=== PATIENT | male | born 1950 | race Caucasian/White ===

== ENCOUNTER → 2017-04-03 | Outpatient (CLI) | payer OTHER ==
[~2017-04-03] MED LIST: ETODOLAC 400 M400 M1 PO; SIMVASTATIN40 MG PO; SYNTHROID100 MCG PO
== END ==
LOC: MRI 13:24
DX: S83.241A Other tear of medial meniscus, current injury, right knee, initial encounter (principal); M25.461 Effusion, right knee; X58.XXXA Exposure to other specified factors, initial encounter; Y93.89 Activity, other specified; Y92.89 Other specified places as the place of occurrence of the external cause; Y99.8 Other external cause status

== ENCOUNTER → 2020-11-01 | Outpatient (CLI) | payer OTHER, MEDICARE ==
[2020-11-01 11:00] LABS: ABSOLUTE NEUTROPHILS 5.3 thou/uL (1.4-8.2); BASOPHILS 0.5 % (0.0-2.0); EOSINOPHILS 3.2 % (0.0-3.0); HEMATOCRIT 42.2 % (42.0-52.0); HEMOGLOBIN 14.2 gm/dL (14.0-18.0); LYMPHOCYTES 21.9 % (24.0-44.0); MCH 29.8 pg (26.0-34.0); MCHC 33.7 g/dL (28.0-37.0); MCV 88.7 fL (80.0-100.0); MONOCYTES 13.6 % (1.0-8.0); PLATELET COUNT 304 thou/uL (150-400); POLYS 60.8 % (36.0-66.0); RBC 4.76 mil/uL (4.50-6.00); RDW 14.5 % (10.5-14.5); WBC 8.8 thou/uL (4.0-11.0)
[2020-11-01 11:07] LABS: CALCIUM 9.3 mg/dL (8.5-10.1); CREATININE 1.4 mg/dL (0.7-1.3); POTASSIUM 4.6 mmol/L (3.5-5.1)
== END ==
LOC: CAT 09:13
PROVIDERS: ATTEND Family Medicine
DX: K76.89 Other specified diseases of liver (principal); N40.0 Benign prostatic hyperplasia without lower urinary tract symptoms; K57.30 Diverticulosis of large intestine without perforation or abscess without bleeding; N32.89 Other specified disorders of bladder; M47.815 Spondylosis without myelopathy or radiculopathy, thoracolumbar region

== ENCOUNTER 2020-12-18 02:43 | Observation (INO) | payer OTHER, MEDICARE ==
[~2020-12-18] VITALS: Ht 170.2 cm; Wt 77.1 kg
[2020-12-18 02:46] VITALS: BP 142/82
[2020-12-18] MEDS ORDERED: NORVASC5 MG PO (02:51)
[2020-12-18] MEDS ORDERED: LEVOTHYROXINE112 MC1 PO (02:52)
[2020-12-18 05:02] LABS: ABSOLUTE NEUTROPHILS 4.7 thou/uL (1.4-8.2); BASOPHILS 0.4 % (0.0-2.0); EOSINOPHILS 5.7 % (0.0-3.0); HEMATOCRIT 40.5 % (42.0-52.0); HEMOGLOBIN 13.2 gm/dL (14.0-18.0); LYMPHOCYTES 24.5 % (24.0-44.0); MCH 29.4 pg (26.0-34.0); MCHC 32.5 g/dL (28.0-37.0); MCV 90.3 fL (80.0-100.0); MONOCYTES 10.7 % (1.0-8.0); PLATELET COUNT 321 thou/uL (150-400); POLYS 58.7 % (36.0-66.0); RBC 4.48 mil/uL (4.50-6.00); RDW 14.8 % (10.5-14.5)
[2020-12-18 05:06] LABS: CALCIUM 8.2 mg/dL (8.5-10.1); CREATININE 1.2 mg/dL (0.7-1.3); POTASSIUM 3.5 mmol/L (3.5-5.1)
[2020-12-18 05:17] LABS: ALBUMIN 3.2 g/dL (3.4-5.0); TOTAL BILIRUBIN 0.4 mg/dL (0.2-1.0); TOTAL PROTEIN 6.7 g/dL (6.4-8.2)
[2020-12-18 07:29] VITALS: BP 133/78
[2020-12-18 09:05] VITALS: BP 143/82
[2020-12-18 11:18] LABS: FOLIC ACID 24.3 ng/mL (8.6-58.9)
[2020-12-18] MEDS ORDERED: MIRALAX17 GM PO (11:49)
[2020-12-18 12:40] VITALS: BP 147/79
--- NOTE | 2020-12-18 13:54 | EKG ---
[address] [address] ELECTROCARDIOGRAM REPORT Name: TOÑO WOODY Room #: 170-9 [facility] M.R.#: [id number] Admission: 12/18/20 Attend Phys: Remberto Dietrich MD Discharge: Date of : 46 Report #: [id number] [facility] ED Test Date: 2020-12-18 Test Time: 02:58:41 Pat Name: TOÑO WOODY Department: Room: 170 Gender: M [employer]oufl[employer] Specialist: RANJITH : 1950 Requested By: Emmett Hernandez Order Number: [id number] MD: Christian Rojas Measurements Intervals [place] Rate: 76 P: 57 [place]: 169 QRS: -11 QRSD: 111 T: -4 QT: 417 QTc: 469 Interpretive Statements Sinus rhythm Abnormal R-wave progression, early transition Borderline T abnormalities, inferior leads Compared to ECG 09/09/2015 22:47:19 Left ventricular hypertrophy no longer present T-wave abnormality still present Electronically Signed On 12-18-2020 13:53:33 CDT by Christian Rojas [email or web address] <ELECTRONICALLY SIGNED> By: Christian Rojas MD, [facility] 12/18/20 [id number] Christian Rojas MD, [facility] /EPI
== END 2020-12-18 12:40 | disposition home or self-care (01) ==
LOC: ER 02:43 → EROBS 05:26
PROVIDERS: Emergency Medicine; ADMIT Internal Medicine; ATTEND Internal Medicine
DX: R55 Syncope and collapse (principal); Z20.822 Contact with and (suspected) exposure to COVID-19; S01.01XA Laceration without foreign body of scalp, initial encounter; M54.2 Cervicalgia; R79.89 Other specified abnormal findings of blood chemistry; I10 Essential (primary) hypertension; E03.9 Hypothyroidism, unspecified; E78.00 Pure hypercholesterolemia, unspecified; Z79.899 Other long term (current) drug therapy; Z90.89 Acquired absence of other organs; W18.39XA Other fall on same level, initial encounter; Y93.89 Activity, other specified; Y92.89 Other specified places as the place of occurrence of the external cause; Y99.8 Other external cause status